=== PATIENT | male | born 1985 | race African-American/Black ===

== ENCOUNTER 2017-12-07 05:49 | Emergency (ER) | payer SELFPAY ==
[2017-12-07] MEDS ORDERED: Lidocaine 1% w/Epinephrine 1:100K 20 ML VIAL ONE (05:58)
[2017-12-07] MEDS ORDERED: Lidocaine 1% (PF) 30 ML VIAL ONE (05:59)
== END 2017-12-07 06:20 | disposition home or self-care (01) ==
LOC: ERS 05:49
DX: L03.011 Cellulitis of right finger (principal)
CPT/HCPCS: 26010; J2001

== ENCOUNTER 2020-06-30 22:06 | Inpatient (IN) | payer OTHER, SELFPAY ==
[~2020-06-30 22:06] MED LIST: Iopamidol-370 76% 500 ML 1 ML ONE
[2020-06-30] MEDS ORDERED: Tranexamic Acid 1,000 MG/10 ML VIAL ONE (22:13)
[2020-06-30] MEDS ORDERED: Boostrix 0.5 ML (Tdap) VIAL ONE (22:13)
[2020-06-30 22:31] LABS: Prothrombin Time 13.3 sec (12.0-14.7)
[2020-06-30 22:32] LABS: Hemoglobin 13.3 g/dL (14.0-18.0); Mean Corpuscular HGB CONC 32.9 g/dL (32.0-36.0); Mean Corpuscular Hemoglobin 29.9 pg (27.0-31.0); Mean Corpuscular Volume 90.6 fL (78.0-98.0); Mean Platelet Volume 7.4 fL (7.4-10.4); Platelet Count 316 thou/uL (130-400); Red Blood Cell (RBC) Count 4.47 mill/uL (4.70-6.10); White Blood Cell (WBC) Count 16.4 thou/uL (4.8-10.8)
[2020-06-30 22:44] LABS: ALT (SGPT) 93 U/L (8-55); AST (SGOT) 69 U/L (5-34); Albumin 3.9 g/dL (3.5-5.0); Alkaline Phosphatase 61 U/L (40-110); Anion Gap 14 mmol/L (10-20); BUN (Urea Nitrogen) 12 mg/dL (8.9-20.6); Bilirubin, Total 0.2 mg/dL (0.2-1.2); Calc. Creatinine Clearance 0 mL/min (70-130); Calcium 8.3 mg/dL (7.8-10.44); Carbon Dioxide 22 mmol/L (22-29); Chloride 105 mmol/L (98-107); Globulin 2.9 g/dL (2.4-3.5); Glucose 135 mg/dL (70-105); Lipase 16 U/L (8-78); Potassium 3.3 mmol/L (3.5-5.1); Protein, Total 6.8 g/dL (6.0-8.3); Sodium 138 mmol/L (136-145)
[2020-06-30] MEDS ORDERED: PHENYLEPHRINE-NS 100 MCG/ML 10 ML SYRINGE ONE (22:46)
[2020-06-30] MEDS ORDERED: Calcium Chloride 1 GM/10 ML Abboject SYRINGE ONE (22:46)
[2020-06-30] MEDS ORDERED: Ondansetron PF 4 MG/2 ML Vial ONE (22:46)
[2020-06-30] MEDS ORDERED: Succinylcholine 200 MG/10 ml SYRINGE FS ONE (22:46)
[2020-06-30] MEDS ORDERED: Vecuronium 10 MG VIAL ONE (22:46)
[2020-06-30] MEDS ORDERED: Rocuronium Bromide 10 MG/ML (10ML VIAL) ONE (22:46)
[2020-06-30] MEDS ORDERED: Dexamethasone 20 MG/5 ML VIAL ONE (22:46)
[2020-06-30] MEDS ORDERED: PROPOFOL 200 MG/20 ML VIAL ONE (22:46)
[2020-06-30 22:51] LABS: Eosinophils 2 % (0-10); Lymphocytes 48 % (21-51); MDiff Complete? YES; Monocytes 12 % (0-10); Neutrophil 38 % (42-75); Platelet Morphology Comment Appears Adequate
[2020-06-30 23:03] LABS: Acetaminophen Less than 6.0 mcg/mL (10.0-30.0); Alcohol Less than 10 mg/dL (Less than 10); Salicylate Less than 8.0 mg/dL (15.0-30.0)
[2020-06-30] MEDS ORDERED: PROPOFOL 20 ML ONE (23:57)
[2020-07-01] MEDS ORDERED: Phenylephrine 10 MG/ML VIAL ONE
[2020-07-01] MEDS ORDERED: PHENYLEPHRINE-NS 100 MCG/ML 10 ML SYRINGE ONE (00:01)
[2020-07-01] MEDS ORDERED: Dextrose 5% in Water 1,000 ML IV PRN (00:25)
[2020-07-01] MEDS ORDERED: Dextrose 50% Abboject 50 ML SYRINGE SLOW IVP PRN (00:25)
[2020-07-01] MEDS ORDERED: Ondansetron PF 4 MG/2 ML Vial IVP PRN (00:25)
[2020-07-01] MEDS ORDERED: Ondansetron ODT 4 MG TAB PO PRN (00:25)
[2020-07-01] MEDS ORDERED: Ventilator Sedation Protocol 1 EACH FS SCH (00:30)
[2020-07-01] MEDS ORDERED: Fentanyl BOLUS 250 ML IVPB PRN (00:45)
[2020-07-01] MEDS ORDERED: Morphine 2 MG/ML VIAL SLOW IVP PRN (00:45)
[2020-07-01] MEDS ORDERED: Lorazepam 2 MG/ML VIAL SLOW IVP PRN (00:45)
[2020-07-01] MEDS ORDERED: Fentanyl CADD 100 ML IV SCH (00:45)
[2020-07-01] MEDS ORDERED: DISCONTINUE PREVIOUS NARCOTIC PAIN MEDICATIONS AND BENZODIAZEPINES FS SCH (00:45)
[2020-07-01] MEDS ORDERED: Propofol BOLUS 1,000 MG/100 ML VIAL IV PRN (00:45)
[2020-07-01] MEDS ORDERED: Propofol 1,000 MG/100 ML VIAL IV PRN (00:45)
[2020-07-01] MEDS: Sodium Chloride 0.9% 1,000 ML IV SCH ×3 (01:00→16:52)
[2020-07-01] MEDS ORDERED: Fentanyl CADD 100 ML ONE (01:02)
[2020-07-01 05:53] LABS: %Basophils 0.1 % (0.0-1.0); %Eosinophils 0.1 % (0.0-10.0)
[2020-07-01 05:54] LABS: Anion Gap 13 mmol/L (10-20); BUN (Urea Nitrogen) 10 mg/dL (8.9-20.6); Calc. Creatinine Clearance 0 mL/min (70-130); Calcium 8.4 mg/dL (7.8-10.44); Carbon Dioxide 21 mmol/L (22-29); Chloride 107 mmol/L (98-107); Glucose 147 mg/dL (70-105); Potassium 4.5 mmol/L (3.5-5.1); Sodium 136 mmol/L (136-145)
[2020-07-01 05:56] VITALS: BMI 37.5
[2020-07-01 06:04] LABS: #Lymphocytes 0.7 thou/uL (1.20-3.40); #Monocytes 1.4 thou/uL (0.11-0.59); %Lymphocytes 4.5 % (21.0-51.0); %Monocytes 8.6 % (0.0-10.0); %Neutrophils 86.7 % (42.0-75.0); Hemoglobin 14.4 g/dL (14.0-18.0); Mean Corpuscular HGB CONC 33.5 g/dL (32.0-36.0); Mean Corpuscular Hemoglobin 30.3 pg (27.0-31.0); Mean Corpuscular Volume 90.3 fL (78.0-98.0); Mean Platelet Volume 7.7 fL (7.4-10.4); Platelet Count 232 thou/uL (130-400); RBC Distribution Width 13.2 % (11.5-14.5); Red Blood Cell (RBC) Count 4.76 mill/uL (4.70-6.10); White Blood Cell (WBC) Count 16.1 thou/uL (4.8-10.8)
[2020-07-01] MEDS ORDERED: Famotidine/PF 20 mg/2ml Vial SLOW IVP SCH (09:00)
[2020-07-01] MEDS ORDERED: traMADol HCl 50 MG TAB PO PRN (11:08)
[2020-07-01] MEDS ORDERED: Ketorolac Tromethamine 30 MG/ML VIAL IVP SCH (11:15)
[2020-07-01] MEDS: traMADol HCl 50 MG TAB PO SCH ×3 (11:47→23:34)
[2020-07-01] MEDS: Acetaminophen 325 MG TAB PO SCH ×3 (12:17→22:00)
[2020-07-01 12:36] LABS: Bilirubin Negative (Negative); Blood, Urine Negative (Negative); Clarity Clear (Clear); Glucose, Urine (Dipstick) Normal (Negative); Ketone, Urine Negative (Negative); Leukocyte Negative Leu/uL (Negative); Nitrite Negative (Negative); Protein, Urine (Dipstick) Negative (Neg-Trace); Specific Gravity, Urine 1.026 (1.002-1.036); Urobilinogen Normal mg/dL (Less than 2); pH, Urine 5.5 (5.0-9.0)
[2020-07-01 12:43] LABS: SARS-CoV-2 PCR by NAA Not Detected (NotDetected)
[2020-07-01 12:52] LABS: Amphetamine Not Detected (NotDetected); Barbiturates Screen Not Detected (NotDetected); Benzodiazepine Screen Not Detected (NotDetected); Cocaine Metabolite Screen Not Detected (NotDetected); Medtox Control Line Valid? VALID (VALID); Medtox Reader # READER 4; Methadone Not Detected (NotDetected); Methamphetamine Not Detected (NotDetected); Opiate Screen Detected (NotDetected); Oxycodone Screen Not Detected (NotDetected); Phencyclidine (PCP) Not Detected (NotDetected); THC/Cannabinoid Screen Detected (NotDetected); Tricyclic Screen Not Detected (NotDetected)
[2020-07-01] MEDS: Ibuprofen 200 MG TAB PO SCH ×2 (14:25→22:01)
[2020-07-01] MEDS: Famotidine 20 MG TAB PO SCH (20:44)
[2020-07-01] MEDS ORDERED: Sodium Chloride 0.9% 500 ML IVPB SCH (22:45)
[2020-07-02] MEDS: Sodium Chloride 0.9% 1,000 ML IV SCH (03:43)
[2020-07-02 04:38] LABS: #Basophils 0.1 thou/uL (0.0-0.2); #Eosinphils 0.1 thou/uL (0.0-0.7); #Lymphocytes 3.3 thou/uL (1.20-3.40); #Monocytes 1.8 thou/uL (0.11-0.59); #Neutrophils 10.4 thou/uL (1.40-6.50); %Basophils 0.4 % (0.0-1.0); %Eosinophils 0.9 % (0.0-10.0); %Lymphocytes 20.7 % (21.0-51.0); %Monocytes 11.6 % (0.0-10.0); %Neutrophils 66.4 % (42.0-75.0); Hemoglobin 12.9 g/dL (14.0-18.0); Mean Corpuscular HGB CONC 34.2 g/dL (32.0-36.0); Mean Corpuscular Volume 90.7 fL (78.0-98.0); Platelet Count 185 thou/uL (130-400); RBC Distribution Width 13.2 % (11.5-14.5); Red Blood Cell (RBC) Count 4.16 mill/uL (4.70-6.10); White Blood Cell (WBC) Count 15.7 thou/uL (4.8-10.8)
[2020-07-02 05:00] LABS: ALT (SGPT) 196 U/L (8-55); AST (SGOT) 104 U/L (5-34); Albumin 3.3 g/dL (3.5-5.0); Alkaline Phosphatase 51 U/L (40-110); Anion Gap 9 mmol/L (10-20); BUN (Urea Nitrogen) 11 mg/dL (8.9-20.6); Bilirubin, Total 0.8 mg/dL (0.2-1.2); Calc. Creatinine Clearance 214 mL/min (70-130); Calcium 8.1 mg/dL (7.8-10.44); Carbon Dioxide 25 mmol/L (22-29); Chloride 103 mmol/L (98-107); Globulin 2.6 g/dL (2.4-3.5); Glucose 113 mg/dL (70-105); Magnesium 1.7 mg/dL (1.6-2.6); Phosphorus 2.5 mg/dL (2.3-4.7); Protein, Total 5.9 g/dL (6.0-8.3); Sodium 133 mmol/L (136-145)
[2020-07-02] MEDS: Ibuprofen 200 MG TAB PO SCH (05:06)
[2020-07-02] MEDS: traMADol HCl 50 MG TAB PO SCH (05:06)
[2020-07-02] MEDS: Acetaminophen 325 MG TAB PO SCH ×4 (05:07→23:30)
[2020-07-02] MEDS: Famotidine 20 MG TAB PO SCH ×2 (08:28→19:48)
[2020-07-02] MEDS ORDERED: Morphine 4 MG/ML VIAL ONE (11:21)
[2020-07-02] MEDS ORDERED: HYDROmorphone 10 mg/100 ml CADD IVPB PRN (11:43)
[2020-07-02] MEDS ORDERED: diphenhydrAMINE 50 MG/ML VIAL IM PRN (11:43)
[2020-07-02] MEDS ORDERED: diphenhydrAMINE 50 MG/ML VIAL IVP PRN (11:43)
[2020-07-02] MEDS ORDERED: diphenhydrAMINE 25 MG CAP PO PRN (11:43)
[2020-07-02] MEDS ORDERED: Naloxone HCl 0.4 mg/ml Vial IV PRN (11:43)
[2020-07-02] MEDS ORDERED: Communication Order-Pharmacy FS SCH (11:45)
[2020-07-02] MEDS: Gabapentin 300 MG CAP PO SCH ×2 (14:43→19:49)
[2020-07-02] MEDS: Ketorolac Tromethamine 30 MG/ML VIAL IVP SCH ×3 (15:47→23:30)
[2020-07-02] MEDS ORDERED: Lidocaine 4% Topical Sol 50 ML BOT TOP PRN (17:42)
[2020-07-02] MEDS: Senokot S 8.6-50 MG TAB PO SCH (21:13)
[2020-07-03] MEDS: Acetaminophen 325 MG TAB PO SCH ×4 (06:01→23:34)
[2020-07-03] MEDS: Ketorolac Tromethamine 30 MG/ML VIAL IVP SCH ×4 (06:02→23:34)
[2020-07-03] MEDS: Famotidine 20 MG TAB PO SCH ×2 (09:43→20:40)
[2020-07-03] MEDS: Gabapentin 300 MG CAP PO SCH ×3 (09:43→20:40)
[2020-07-03] MEDS: Senokot S 8.6-50 MG TAB PO SCH ×2 (09:44→20:40)
[2020-07-03] MEDS: Polyethylene Glycol 3350 17 GM Packet PO SCH (09:44)
[2020-07-03] MEDS ORDERED: Bupivacaine PF 0.5% 30 ML VIAL ONE (10:00)
[2020-07-03] MEDS ORDERED: Bacitracin Zinc Ointment 30 gm TUBE ONE (10:00)
[2020-07-03] MEDS ORDERED: Betamet Acet/Betamet Na Ph 30 MG/5 ML VIAL ONE (10:00)
[2020-07-03] MEDS ORDERED: Fentanyl 250 MCG/5 ML VIAL ONE (10:01)
[2020-07-03] MEDS ORDERED: Lidocaine 1% PF 5 ML VIAL ONE (10:36)
[2020-07-03] MEDS ORDERED: Dexamethasone 20 MG/5 ML VIAL ONE (10:36)
[2020-07-03] MEDS ORDERED: Ketorolac Tromethamine 30 MG/ML VIAL ONE (10:36)
[2020-07-03] MEDS ORDERED: PROPOFOL 200 MG/20 ML VIAL ONE (10:36)
[2020-07-03] MEDS ORDERED: Ondansetron PF 4 MG/2 ML Vial ONE (10:36)
[2020-07-03] MEDS ORDERED: Esmolol 100 MG/10 ML VIAL ONE (10:36)
[2020-07-03] MEDS ORDERED: HYDROmorphone 2 MG/ML VIAL ONE (10:57)
[2020-07-03] MEDS ORDERED: Meperidine HCl/PF 25 MG/ML VIAL IM PRN (14:22)
[2020-07-03] MEDS ORDERED: Promethazine HCl 25 MG/ML VIAL IM PRN (14:22)
[2020-07-03] MEDS ORDERED: Morphine 4 MG/ML VIAL SLOW IVP PRN (14:23)
[2020-07-03] MEDS: CEFAZOLIN 2 GM in Premix Bag 1 BAG IVPB SCH ×2 (15:26→23:35)
[2020-07-04 05:07] LABS: #Lymphocytes 1.6 thou/uL (1.20-3.40); %Basophils 0.2 % (0.0-1.0); %Eosinophils 0.5 % (0.0-10.0); %Lymphocytes 18.6 % (21.0-51.0); %Monocytes 11.5 % (0.0-10.0); %Neutrophils 69.2 % (42.0-75.0); Hemoglobin 11.7 g/dL (14.0-18.0); Mean Corpuscular HGB CONC 32.5 g/dL (32.0-36.0); Mean Corpuscular Hemoglobin 29.4 pg (27.0-31.0); Mean Corpuscular Volume 90.3 fL (78.0-98.0); Mean Platelet Volume 7.5 fL (7.4-10.4); Platelet Count 197 thou/uL (130-400); RBC Distribution Width 12.5 % (11.5-14.5); Red Blood Cell (RBC) Count 3.98 mill/uL (4.70-6.10); White Blood Cell (WBC) Count 8.7 thou/uL (4.8-10.8)
[2020-07-04 05:24] LABS: Anion Gap 14 mmol/L (10-20); BUN (Urea Nitrogen) 14 mg/dL (8.9-20.6); Calc. Creatinine Clearance 224 mL/min (70-130); Calcium 8.4 mg/dL (7.8-10.44); Carbon Dioxide 25 mmol/L (22-29); Chloride 100 mmol/L (98-107); Glucose 108 mg/dL (70-105); Potassium 3.8 mmol/L (3.5-5.1); Sodium 135 mmol/L (136-145)
[2020-07-04] MEDS: Acetaminophen 325 MG TAB PO SCH ×3 (05:38→17:59)
[2020-07-04] MEDS: Ketorolac Tromethamine 30 MG/ML VIAL IVP SCH ×2 (05:39→11:59)
[2020-07-04] MEDS: CEFAZOLIN 2 GM in Premix Bag 1 BAG IVPB SCH (05:40)
[2020-07-04] MEDS: Senokot S 8.6-50 MG TAB PO SCH ×2 (08:43→20:13)
[2020-07-04] MEDS: Polyethylene Glycol 3350 17 GM Packet PO SCH (08:43)
[2020-07-04] MEDS: Famotidine 20 MG TAB PO SCH ×2 (08:44→20:13)
[2020-07-04] MEDS: Gabapentin 300 MG CAP PO SCH ×3 (09:00→20:13)
[2020-07-04] MEDS ORDERED: traMADol HCl 50 MG TAB PO SCH (13:00)
[2020-07-04] MEDS: traMADol HCl 50 MG TAB PO PRN (19:04)
[2020-07-05] MEDS: Acetaminophen 325 MG TAB PO SCH ×4 (00:26→16:50)
[2020-07-05] MEDS: Ibuprofen 200 MG TAB PO PRN ×2 (00:26→09:43)
[2020-07-05] MEDS: traMADol HCl 50 MG TAB PO PRN ×2 (00:27→05:36)
[2020-07-05] MEDS: Cyclobenzaprine 10 MG TAB PO PRN (05:36)
[2020-07-05] MEDS: Famotidine 20 MG TAB PO SCH ×2 (09:42→20:27)
[2020-07-05] MEDS: Gabapentin 300 MG CAP PO SCH ×3 (09:42→20:27)
[2020-07-05] MEDS: Senokot S 8.6-50 MG TAB PO SCH ×2 (09:49→20:18)
[2020-07-05] MEDS: Polyethylene Glycol 3350 17 GM Packet PO SCH (09:50)
[2020-07-05] MEDS: traMADol HCl 50 MG TAB PO SCH ×3 (14:28→23:30)
[2020-07-06] MEDS: Acetaminophen 325 MG TAB PO SCH ×4 (00:55→18:45)
[2020-07-06] MEDS: Ibuprofen 200 MG TAB PO PRN ×2 (04:10→19:31)
[2020-07-06] MEDS: traMADol HCl 50 MG TAB PO SCH ×3 (05:33→18:52)
[2020-07-06] MEDS: Gabapentin 300 MG CAP PO SCH ×3 (08:55→21:23)
[2020-07-06] MEDS: Famotidine 20 MG TAB PO SCH (08:56)
[2020-07-06] MEDS: Senokot S 8.6-50 MG TAB PO SCH ×3 (08:56→21:25)
[2020-07-06] MEDS: Polyethylene Glycol 3350 17 GM Packet PO SCH (08:56)
[2020-07-06 11:32] LABS: Actual Bicarbonate (HCO3a) 18.6 mEq/L (22-28); Analyzer IN Cardio OR; Base Excess (BEa) -7.1 mEq/L (-2.0 to +3.0); CO2 Tension 38.3 mmHg (35.0-45.0); Calcium, Ionized (arterial) 1.05 mmol/L (1.12-1.30); Carboxyhemoglobin (COHb) 3.8 gm% (0.0-3.0); Hemoglobin (Hb) 14.5 g/dL (14.0-18.0); O2 Tension (PaO2), arterial 330.1 mmHg (80.0-100.0); Potassium - ABG Lab 3.54 mmol/L (3.70-5.30); Puncture Site Arterial Line; pH, Arterial 7.31 (7.35-7.45)
[2020-07-06] MEDS: Cyclobenzaprine 10 MG TAB PO PRN (19:32)
[2020-07-07] MEDS: traMADol HCl 50 MG TAB PO SCH ×5 (06:09→23:48)
[2020-07-07] MEDS: Acetaminophen 325 MG TAB PO SCH ×5 (06:13→23:48)
[2020-07-07] MEDS: Gabapentin 300 MG CAP PO SCH ×3 (09:23→20:33)
[2020-07-07] MEDS: Ibuprofen 200 MG TAB PO PRN (09:23)
[2020-07-07] MEDS: Polyethylene Glycol 3350 17 GM Packet PO SCH (09:23)
[2020-07-07] MEDS: Senokot S 8.6-50 MG TAB PO SCH ×2 (09:24→20:33)
[2020-07-07] MEDS ORDERED: Acetaminophen 325 MG TAB ONE (13:01)
[2020-07-07] MEDS ORDERED: Simethicone Chewable 80 MG TAB PO PRN (19:42)
[2020-07-07] MEDS ORDERED: Sodium Chloride 0.9% 1,000 ML IV SCH (21:45)
[2020-07-07] MEDS: Sodium Chloride 0.9% 1,000 ML IV SCH (23:49)
[2020-07-08] MEDS: traMADol HCl 50 MG TAB PO SCH ×3 (05:32→18:11)
[2020-07-08] MEDS: Acetaminophen 325 MG TAB PO SCH ×3 (05:32→18:12)
[2020-07-08] MEDS: Gabapentin 300 MG CAP PO SCH ×3 (08:24→20:38)
[2020-07-08] MEDS: Polyethylene Glycol 3350 17 GM Packet PO SCH (08:25)
[2020-07-08] MEDS: Senokot S 8.6-50 MG TAB PO SCH ×2 (08:25→20:39)
[2020-07-08] MEDS: Sodium Chloride 0.9% 1,000 ML IV SCH ×2 (08:43→20:38)
[2020-07-08 09:14] LABS: #Eosinphils 0.3 thou/uL (0.0-0.7); #Lymphocytes 2.7 thou/uL (1.20-3.40); #Monocytes 1.4 thou/uL (0.11-0.59); #Neutrophils 7.9 thou/uL (1.40-6.50); %Basophils 0.1 % (0.0-1.0); %Eosinophils 2.6 % (0.0-10.0); %Lymphocytes 21.9 % (21.0-51.0); %Monocytes 11.4 % (0.0-10.0); Hemoglobin 10.1 g/dL (14.0-18.0); Mean Corpuscular HGB CONC 32.3 g/dL (32.0-36.0); Mean Corpuscular Hemoglobin 28.9 pg (27.0-31.0); Mean Corpuscular Volume 89.4 fL (78.0-98.0); Mean Platelet Volume 7.2 fL (7.4-10.4); Platelet Count 292 thou/uL (130-400); RBC Distribution Width 12.3 % (11.5-14.5); Red Blood Cell (RBC) Count 3.48 mill/uL (4.70-6.10); White Blood Cell (WBC) Count 12.3 thou/uL (4.8-10.8)
[2020-07-08 09:34] LABS: Anion Gap 12 mmol/L (10-20); BUN (Urea Nitrogen) 11 mg/dL (8.9-20.6); Calc. Creatinine Clearance 251 mL/min (70-130); Calcium 8.4 mg/dL (7.8-10.44); Carbon Dioxide 25 mmol/L (22-29); Chloride 103 mmol/L (98-107); Glucose 91 mg/dL (70-105); Magnesium 1.6 mg/dL (1.6-2.6); Phosphorus 3.1 mg/dL (2.3-4.7); Potassium 3.3 mmol/L (3.5-5.1); Sodium 137 mmol/L (136-145)
[2020-07-08] MEDS ORDERED: HYDROmorphone 0.5 MG/0.5 ML SYRINGE ONE (12:09)
[2020-07-08] MEDS ORDERED: Midazolam HCl 2 mg/2 ml Vial ONE (12:09)
[2020-07-08] MEDS ORDERED: Fentanyl 100 MCG/2 ML VIAL ONE (12:09)
[2020-07-08] MEDS ORDERED: Ondansetron PF 4 MG/2 ML Vial ONE (12:52)
[2020-07-08] MEDS ORDERED: PROPOFOL 200 MG/20 ML VIAL ONE (12:52)
[2020-07-08] MEDS ORDERED: Esmolol 100 MG/10 ML VIAL ONE (12:52)
[2020-07-08] MEDS ORDERED: Dexamethasone 20 MG/5 ML VIAL ONE (12:52)
[2020-07-08] MEDS ORDERED: Ketorolac Tromethamine 30 MG/ML VIAL ONE (12:52)
[2020-07-08] MEDS ORDERED: Lidocaine 1% PF 5 ML VIAL ONE (12:52)
[2020-07-08] MEDS ORDERED: Rocuronium Bromide 10 MG/ML (10ML VIAL) ONE (12:52)
[2020-07-08] MEDS ORDERED: Glycopyrrolate 0.2 MG/ML 5 ML SYRINGE ONE (12:52)
[2020-07-08] MEDS ORDERED: Promethazine HCl 25 MG/ML VIAL IM PRN (14:31)
[2020-07-08] MEDS ORDERED: Ondansetron HCl/PF 4 MG/2 ML Vial IVP PRN (14:31)
[2020-07-08] MEDS ORDERED: Promethazine HCl 25 MG/ML VIAL SLOW IVP PRN (14:31)
[2020-07-08] MEDS ORDERED: PACU-Morphine 4MG/ML VIAL SLOW IVP PRN (14:31)
[2020-07-08] MEDS ORDERED: HYDROmorphone 2 MG/ML VIAL SLOW IVP PRN (14:31)
[2020-07-08] MEDS: traMADol HCl 50 MG TAB PO PRN (16:21)
[2020-07-09] MEDS: Acetaminophen 325 MG TAB PO SCH ×3 (00:33→12:32)
[2020-07-09] MEDS: traMADol HCl 50 MG TAB PO SCH ×3 (00:34→12:33)
[2020-07-09] MEDS ORDERED: Potassium Chloride 20 MEQ TAB PO SCH (07:30)
[2020-07-09 09:37] LABS: #Eosinphils 0.2 thou/uL (0.0-0.7); #Lymphocytes 3.3 thou/uL (1.20-3.40); #Monocytes 1.5 thou/uL (0.11-0.59); #Neutrophils 11.6 thou/uL (1.40-6.50); %Basophils 0.2 % (0.0-1.0); %Lymphocytes 19.8 % (21.0-51.0); %Monocytes 9.1 % (0.0-10.0); Hemoglobin 10.1 g/dL (14.0-18.0); Mean Corpuscular HGB CONC 32.7 g/dL (32.0-36.0); Mean Corpuscular Hemoglobin 29.3 pg (27.0-31.0); Mean Corpuscular Volume 89.7 fL (78.0-98.0); Mean Platelet Volume 7.3 fL (7.4-10.4); Platelet Count 365 thou/uL (130-400); RBC Distribution Width 12.3 % (11.5-14.5); Red Blood Cell (RBC) Count 3.45 mill/uL (4.70-6.10); White Blood Cell (WBC) Count 16.6 thou/uL (4.8-10.8)
[2020-07-09 09:39] LABS: Anion Gap 13 mmol/L (10-20); BUN (Urea Nitrogen) 12 mg/dL (8.9-20.6); Calc. Creatinine Clearance 248 mL/min (70-130); Carbon Dioxide 23 mmol/L (22-29); Chloride 105 mmol/L (98-107); Glucose 115 mg/dL (70-105); Potassium 3.6 mmol/L (3.5-5.1); Sodium 137 mmol/L (136-145)
[2020-07-09] MEDS: Gabapentin 300 MG CAP PO SCH (09:44)
[2020-07-09] MEDS: Senokot S 8.6-50 MG TAB PO SCH (09:45)
[2020-07-09] MEDS: Polyethylene Glycol 3350 17 GM Packet PO SCH (09:45)
[2020-07-09 12:04] VITALS: BP 122/84; TEMP 98.3
== END 2020-07-09 15:29 | disposition home or self-care (01) | DRG 957 ==
LOC: EEVIPCON 22:06 → ERS 22:06 → SDC/OP 22:47 → CCU 07-01 00:10 → SJJU 07-02 12:48
PROVIDERS: ADMIT Surgery; ATTEND Surgery
PROC: 30233L1 Transfusion of Nonautologous Fresh Plasma into Peripheral Vein, Percutaneous Approach (ICD-10-PCS; 2020-06-30)
PROC: 30233N1 Transfusion of Nonautologous Red Blood Cells into Peripheral Vein, Percutaneous Approach (ICD-10-PCS; 2020-06-30)
PROC: 06HY33Z Insertion of Infusion Device into Lower Vein, Percutaneous Approach (ICD-10-PCS; 2020-06-30)
PROC: 0W3G0ZZ Control Bleeding in Peritoneal Cavity, Open Approach (ICD-10-PCS; principal; 2020-07-01)
PROC: 0W9930Z Drainage of Right Pleural Cavity with Drainage Device, Percutaneous Approach (ICD-10-PCS; 2020-07-01)
PROC: 0JBD0ZZ Excision of Right Upper Arm Subcutaneous Tissue and Fascia, Open Approach (ICD-10-PCS; 2020-07-08)
DX: S36.118A Other injury of liver, initial encounter (principal); J96.01 Acute respiratory failure with hypoxia; S27.2XXA Traumatic hemopneumothorax, initial encounter; S56.222A Laceration of other flexor muscle, fascia and tendon at forearm level, left arm, initial encounter; S21.131A Puncture wound without foreign body of right front wall of thorax without penetration into thoracic cavity, initial encounter; J98.11 Atelectasis; I96 Gangrene, not elsewhere classified; Z20.822 Contact with and (suspected) exposure to COVID-19; S41.131A Puncture wound without foreign body of right upper arm, initial encounter; S41.031A Puncture wound without foreign body of right shoulder, initial encounter; X95.9XXA Assault by unspecified firearm discharge, initial encounter; S14.3XXA Injury of brachial plexus, initial encounter; S31.139A Puncture wound of abdominal wall without foreign body, unspecified quadrant without penetration into peritoneal cavity, initial encounter
CPT/HCPCS: 36415; 36416; 36430; 36556; 51702; 71045; 71260; 72170; 74018; 74177; 80048; 80053; 80306; 80307; 82805; 83605; 83690; 83735; 84100; 85025; 85610; 85730; 86850; 86900; 86901; 87635; 90471; 90715; 94002; 94640; 94760; 96374; C9352; G0390; J0690; J0702; J1100; J1170; J1885; J2250; J2270; J2370; J2405; J2704; J3010; J3490; J7030; J7620; P9016; P9048; Q9967; S0020; S0028; U0003; U0005

== ENCOUNTER 2020-07-14 15:38 | Outpatient (CLI) | payer OTHER ==
[2020-07-15 01:17] LABS: SARS-CoV-2 PCR by NAA Not Detected (NotDetected)
== END 2020-07-14 15:39 | disposition home or self-care (01) ==
LOC: LABBT 15:38
PROVIDERS: ATTEND Orthopaedic Surgery Hand Surgery
DX: Z01.812 Encounter for preprocedural laboratory examination (principal); S61.432A Puncture wound without foreign body of left hand, initial encounter; Z20.822 Contact with and (suspected) exposure to COVID-19
CPT/HCPCS: 87635; U0003; U0005

== ENCOUNTER 2020-07-17 12:35 | Day surgery (SDC) | payer OTHER ==
[2020-07-16 11:42] VITALS: BMI 32.5
[2020-07-17] MEDS ORDERED: Fentanyl 250 MCG/5 ML VIAL ONE (16:33)
[2020-07-17] MEDS ORDERED: Midazolam HCl 5 mg/5 ml Vial ONE (16:33)
[2020-07-17] MEDS ORDERED: Bupivacaine 0.25% HCL 30 ML VIAL ONE (16:42)
[2020-07-17] MEDS ORDERED: Thrombin 5000 UNITS/5 ML VIAL ONE (16:42)
[2020-07-17] MEDS ORDERED: Sodium Chloride 0.9% 0 ML ONE (16:42)
[2020-07-17] MEDS ORDERED: Mineral Oil Sterile 10ML 10 ML UDCUP ONE (16:42)
[2020-07-17] MEDS ORDERED: Bacitracin Zinc Ointment 30 gm TUBE ONE (16:42)
[2020-07-17] MEDS ORDERED: Ketorolac Tromethamine 30 MG/ML VIAL ONE ×2 (17:29→19:22)
[2020-07-17] MEDS ORDERED: Lidocaine 1% PF 5 ML VIAL ONE (17:29)
[2020-07-17] MEDS ORDERED: Ondansetron PF 4 MG/2 ML Vial ONE (17:29)
[2020-07-17] MEDS ORDERED: Dexamethasone 20 MG/5 ML VIAL ONE (17:29)
[2020-07-17] MEDS ORDERED: PROPOFOL 200 MG/20 ML VIAL ONE (17:29)
[2020-07-17] MEDS ORDERED: Fentanyl 100 MCG/2 ML VIAL ONE (19:45)
[2020-07-17] MEDS ORDERED: HYDROcodone/Acetaminophen 5/325 mg Tablet ONE (20:16)
== END 2020-07-17 20:25 | disposition home or self-care (01) ==
LOC: SDC 12:35
PROVIDERS: ATTEND Orthopaedic Surgery Hand Surgery
PROC: 0HRGX73 Replacement of Left Hand Skin with Autologous Tissue Substitute, Full Thickness, External Approach (ICD-10-PCS; principal; 2020-07-17)
DX: S61.231A Puncture wound without foreign body of left index finger without damage to nail, initial encounter (principal); S14.3XXA Injury of brachial plexus, initial encounter; F17.200 Nicotine dependence, unspecified, uncomplicated; W34.00XA Accidental discharge from unspecified firearms or gun, initial encounter
CPT/HCPCS: J0690; J1100; J1885; J2250; J2405; J2704; J3010; J3490; S0020

== ENCOUNTER 2021-09-20 10:43 | Outpatient (CLI) | payer OTHER | END 2021-09-20 10:44 | disposition home or self-care (01) | LOC: BICRAD 10:43 | PROVIDERS: ATTEND Internal Medicine | DX: Z02.71 Encounter for disability determination (principal); M79.5 Residual foreign body in soft tissue ==